=== PATIENT | male | born 1935 | race Caucasian/White ===

== ENCOUNTER → 2020-09-30 09:59 | Outpatient (BNVA) | payer MEDICARE, OTHER, SELFPAY | PROVIDERS: Visit Provider Otolaryngology | DX: C44.42 Squamous cell carcinoma of skin of scalp and neck (principal) | CPT/HCPCS: 87635 ==

== ENCOUNTER 2020-10-07 06:08 | Day surgery (SDC) | payer MEDICARE, OTHER, SELFPAY ==
[2020-10-06 10:51] VITALS: BMI 20.9
[2020-10-07] VITALS (7 sets, daily range): BP systolic 122–155; BP diastolic 57–99; PULSE 60–97; RESP 15–18; TEMP 36.6–37.1; O2SAT 94–100
--- NOTE | 2020-10-07 08:31 | ANES.PREANE2 ---
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 Proposed Procedure: Operation Date: 10/07/20 10:15 Proposed Procedures p EXCISION MALIGNANT LESION SCALP OVER 4CM ADJACENT TISSUE TRANSFER SCALP 10CM TO 30 CM 98390 66227 c44.42(Not Applicable) - Xavi Mejia MD Was Beta Dena taken within 24 hours: N/A Was Clonidine taken within 24 hours: N/A Last intake: Intake Last Liquid Date 10/06/20 Last Liquid Time 19:00 Last Solid Date 10/06/20 Last Solid Time 19:00 Social: Social History: No alcohol and No tobacco Exam: Pre-Anes Outpt Exam: alert, oriented x 3, clear to auscultation bilaterally and regular rate & rhythm Airway: Submandibular: WNL Cervical ROM: WNL MP: 2 Dentition: Chipped Additional comments: Poor dentition, hoarseness Metabolic: Metabolic: DM and Thyroid Comments: Chronic steroid Anesthetic Plan: ASA status: 3 Anesthesia: General Risk of > 500 ml blood loss (7ml/kg in children): No PFSH Anesthesia PFSH: Medical History Diabetes Hypothyroid Rheumatoid arteritis Surgical History History of thyroid surgery Social History Smoking and tobacco status: former smoker History of recent travel: No Data Anesthesia Cardiac Studies: No Data to Display
[2020-10-07 08:37] LABS: Glucose Point of Care 103 mg/dL (70-110)
[2020-10-07] MEDS: sodium chloride 0.9% 1,000 ML 30 ML IV (08:42)
--- NOTE | 2020-10-07 09:01 | W.PM.OPSUD ---
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
[2020-10-07] MEDS: neomycin-poly-bacitracin oint 28 gm 1 APPLIC TOPICAL (14:36)
--- NOTE | 2020-10-07 14:43 | P.OP_ITS ---
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 Procedure Done: Excision of invasive squamous cell carcinoma top of scalp with margins and reconstruction with combinations of rhomboid flap advancement rotation flap advancement flap and allograft. Implants: Allograft Specimens removed/disposition: Primary specimen sent to pathology for frozen section and margins Pathology: Frozen section consistent with invasive squamous cell carcinoma with margins clear Surgeon: Xavi Mejia Anesthesia: General Estimated blood loss (mL): 200 Complications: No complications encountered Findings: 3.5 x 2 cm ovoid invasive squamous cell carcinoma top of scalp Condition: stable Disposition: PACU Brief History: 85-year-old male patient had an invasive squamous cell carcinoma biopsied by Dr. Grant from dermatology. The patient was sent to de for definitive excision and reconstruction. The procedure its risks and complications were explained in detail. Informed consent was granted and wi tnessed. The risks included bleeding infection numbness scarring swelling bruising recurrence need for additional treatment cosmetic change and more serious risks associated with anesthesia. Procedure: The patient was placed in the operating table in the supine position. Adequate general LMA anesthesia was obtained. He was given Ancef IV for proph ylaxis. The patient was prepped and draped in usual fashion after rotating the table 90 degrees. Top of the scalp was exposed. Timeout was accomplished identifying the patient date of plan procedure allergies fire risk and medications given. A marking pen was used to outline a circular incision around the obvious lesion giving a 1 cm cuff around the edges. A 15 blade was used to create the incision circumferentially and taken down to the galea level. In this level the specimen was resected and then it was marked anteriorly with suture. While this was forwarded to the pathologist for margins hemostasis was attained with bipolar and needle tip Bovie and pressure. Pathology returned as invasive squamous cell carcinoma confirmed with all margins clear. At this point it was turning my attention to closure. Based on the scalp tautness or laxity in certain areas I planned out a rhomboid flap that was rotated from the superior parietal on the right side. This flap was raised and all the scalp was elevated to approximately the ears and then posterior to the occiput and the flap was placed into proper position filling the distal original defect and suturing with luís. At this point it became evident however that the donor site from where the rotation occurred did not have enough laxity to close it directly. Therefore the next flap that was raised was a advancement rotation from the left temporoparietal area. This helped to close part of the defect then a advancement with wedge resections was accomplished and this helped to close more of the defect. Skin that was taken from dogears from previous portions of the surgery were placed as grafts and then an allograft was selected to close the remaining 1.5 x 2 cm defect. This closed completely. Skin closure was done with luís and one in 2-0 Prolene and subcutaneous sutures were placed with 2-0 Vicryl. The drapes were then removed the area was cleansed with peroxide and then dried and Neosporin ointment was applied followed by Telfa and then fluffs and then Kerlix rolls around his head and around his chin and around the occiput to keep pressure and cover the Surgical sites to keep them clean and absorb any drainage. The patient tolerated the procedure well had an estimated blood loss of 200 mL and arrived in recovery in stable condition.
--- NOTE | 2020-10-07 14:52 | P.PCN_ITS ---
Documented by User: Terry Olivas CRNA 10/07/20 14:52 PACU note PACU note: VSS, Good respiratory effort, report to JAVA SUPPORT ENGINEER Post-Anesthesia Exam: awake
--- NOTE | 2020-10-07 14:52 | PM.PACU ---
Documented by User: Terry Olivas CRNA 10/07/20 14:52 PACU note PACU note: VSS, Good respiratory effort, report to CURER FOAM RUBBER Post-Anesthesia Exam: awake
--- NOTE | 2020-10-07 15:33 | SUR.PHASEII ---
patient rates pain at 6/10 on head but states he does not want pain medication for it right now. he has a paper rx to take with him for home medication
== END 2020-10-07 16:07 | disposition home or self-care (01) ==
PROVIDERS: Visit Provider Otolaryngology
PROC: (CPT 11626; principal; 2020-10-07 10:05)
DX: C44.42 Squamous cell carcinoma of skin of scalp and neck (principal); E11.9 Type 2 diabetes mellitus without complications; E03.9 Hypothyroidism, unspecified; Z87.891 Personal history of nicotine dependence; Z79.84 Long term (current) use of oral hypoglycemic drugs; Z79.52 Long term (current) use of systemic steroids
CPT/HCPCS: 11626; 12032; 36416; 82962; 88304; 88331; C1762; J0690; J2704; J3010; J7030

== ENCOUNTER → 2022-06-15 09:29 | Outpatient (BNVA) | payer MEDICARE, OTHER, SELFPAY | PROVIDERS: Visit Provider Otolaryngology | DX: C44.42 Squamous cell carcinoma of skin of scalp and neck (principal); Z85.828 Personal history of other malignant neoplasm of skin | CPT/HCPCS: 99214 ==

== ENCOUNTER 2022-07-14 11:51 | Day surgery (SDC) | payer MEDICARE, OTHER, SELFPAY ==
[2022-07-13 12:29] VITALS: BMI 19.5
[2022-07-14] VITALS (10 sets, daily range): BP systolic 130–159; BP diastolic 60–76; PULSE 80–93; RESP 16–18; TEMP 36.1–37; O2SAT 96–99
[2022-07-14 12:34] LABS: Glucose Point of Care 98 mg/dL (70-110)
--- NOTE | 2022-07-14 12:51 | ECG_ITS ---
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 Measurements Intervals [place] Rate: 68 P: 157 ME: 205 QRS: 144 QRSD: 83 T: 150 QT: 362 QTc: 387 Interpretive Statements ECTOPIC ATRIAL RHYTHM POSSIBLE RIGHT VENTRICULAR CONDUCTION DELAY [RSR (QR) IN V1/V2] LATERAL MYOCARDIAL INFARCTION , PROBABLY RECENT [40+ ms Q WAVE AND/OR ST/T ABNORMALITY IN I/aVL/V5/V6] ACUTE PA Compared to ECG 07/14/2022 12:51:22 Ectopic atrial rhythm now present Myocardial infarct finding now present Sinus rhythm no longer present There is theoretical school of the blame and the Electronically Signed On 07-14-2022 21:32:29 CDT by Wayne Saucedo M.D. [id number] f
--- NOTE | 2022-07-14 12:55 | ANES.PREANE2 ---
Pre-Anesthetic Assessment Height/Weight: Height 1.8 m Weight 63.503 kg Temp Pulse Resp BP Pulse Ox O2 Del Method 98.6 F 86 18 133/76 98 Room Air 07/14/22 12:18 07/14/22 12:18 07/14/22 12:18 07/14/22 12:18 07/14/22 12:18 07/14/22 12:24 Preop Diagnosis: Top of scalp lesion/squamous cell carcinoma Operation Date: 07/14/22 13:20 Proposed Procedures p 10391- excision of scalp lesion with repair, with frozen section C44.42(Not Applicable) - Xavi Mejia MD Familial anesthetic complications: NOne Was Beta Dena taken within 24 hours: N/A Was Clonidine taken within 24 hours: N/A Last intake: Intake Last Liquid Date 07/13/22 Last Liquid Time 23:00 Last Solid Date 07/13/22 Last Solid Time 23:00 Social No alcohol and No tobacco Exam alert, oriented x 3, clear to auscultation bilaterally and regular rate & rhythm Airway Mallampati: Class II Dentition: chipped Metabolic Diabetes Mellitus and Thyroid Disease [facility] Rheumatoid Arthritis (chronic steroid) Anesthetic Plan ASA status: 3 Anesthesia: General Risk of > 500 ml blood loss (7ml/kg in children): No Medications/Allergies Home Medications Medication Instructions Recorded Confirmed Last Taken Type folic acid 400 mcg tablet 0.4 mg PO DAILY 09/02/20 07/13/22 07/14/22 History levothyroxine 88 mcg capsule 88 mcg PO DAILY 09/02/20 07/14/22 07/13/22 History metformin 500 mg tablet 500 mg PO DAILY 09/02/20 07/13/22 07/13/22 History methotrexate sodium 5 mg tablet 5 mg PO DAILY 09/02/20 07/13/22 07/11/22 History prednisone 10 mg tablet 10 mg PO .3 weekly 09/02/20 07/13/22 07/11/22 History prednisone 5 mg tablet 5 mg PO DAILY 09/02/20 07/13/22 07/11/22 History Allergies Allergy/AdvReac Type Severity Reaction Status Date / Time No Known Allergies Allergy Verified 06/15/22 09:41 [facility] Anesthesia Medical History Diabetes History of nonmelanoma skin cancer Hypothyroid Rheumatoid arteritis Surgical History History of thyroid surgery Social History Smoking and tobacco status: never smoked Data Anesthesia Cardiac Studies: No Data to Display
--- NOTE | 2022-07-14 14:08 | W.PM.OPSUD ---
Surgery/Procedure H&P Update DATE OF PROCEDURE: July 14, 2022 DATE H&P PERFORMED: 06/15/22 H&P UPDATE INFORMATION: I have reviewed H&P completed within last 30 days, I have examined patient prior to procedure and No changes to prior documentation CHANGES TO PREVIOUS DOCUMENTATION: No changes PREOP DIAGNOSIS: Top of scalp lesion/squamous cell carcinoma PRIMARY INDICATION FOR PROCEDURE: Squamous cell carcinoma of scalp PLANNED PROCEDURE: Operation Date: 07/14/22 13:20 Proposed Procedures p 49300- excision of scalp lesion with repair, with frozen section C44.42(Not Applicable) - Xavi Mejia MD
[2022-07-14] MEDS: ceFAZolin 2,000 MG in sodium chloride 0.9% (plus) 50 ML 100 MG IV (14:12)
[2022-07-14] MEDS: neomycin-poly-bacitracin oint 28 gm 1 APPLIC TOPICAL (15:09)
--- NOTE | 2022-07-14 15:13 | SUR.OPER ---
6.8ML 2% LIDOCAINE WITH EPI INJECTED INTO THE HEAD.
--- NOTE | 2022-07-14 15:25 | PM.OP ---
Operative Report Date of procedure: July 14, 2022 Pre-op diagnosis: Preop Diagnosis Top of scalp lesion/squamous cell carcinoma Post-op diagnosis: Scalp lesion with clear margins Post-op findings: Clear margins Procedure done: scalp lesion with primary repair multilayer 6 cm in length. Implants: No implants Specimens removed/disposition: Scalp lesion with right lateral margin marked with suture Pathology: Same Surgeon: Xavi Mejia MD Anesthesia: General and Local Estimated blood loss: 10 mL Complications: No complications encountered Findings: This patient has had squamous cell carcinoma excised from his scalp in the past. In one of the vision lines there appears to be a recurrence. He has changes that look like actinic keratosis hyperkeratosis and solar elastosis as well. Being brought to the operating room to undergo excision of this lesion and obtain margins. Brief History: 87-year-old male patient with prior squamous cell carcinoma excised in the past. Over time he has developed new lesions at one of the incision lines. He is brought to the operating room at this time to go through excision of this lesion and obtain clear margins. The procedure its risks and complications of been explained in detail. Informed consent is granted and witnessed. Patient understands the risks to include bleeding infection numbness scarring swelling bruising recurrence need for additional treatment and anesthetic risks. Procedure: Description of procedure: The patient was placed on the operating table in the supine position. Adequate general LMA anesthesia was obtained initially and later due to some leakage changed over to a general endotracheal tube. The patient's top of his scalp was exposed in a semirecumbent position. His eyes were taped shut. The scalp was cleansed with alcohol at the sign the site area. 6.8 mL of 2% Xylocaine with 1 100,000 epinephrine was utilized to infiltrate in a regional block. Patient was then prepped and draped in usual fashion. A timeout was accomplished identifying the patient date of plan procedure allergies fire risk and medications given. With all in agreement the procedure continued. A marking pen was used to outline a fusiform excision pattern running from medial to lateral. The wide segment was in the center and anterior and posterior margins were the ones of concern. The incision was created with a cut mode of the Bovie on low power carrying it down to the galea layer. In that layer the lesion was excised and it was marked right lateral with suture. This was sent for frozen section. While that was pending the area had bleeding controlled with bipolar cautery. With the expectation that the margins would be clear the undermining was accomplished for about 10 cm anterior to the incision and also posterior to the incision. Then the deep layer was closed with interrupted 3-0 Vicryl suture. This came together well. Then skin luís were placed from lateral to medial on the incision or defect itself. This closed completely. The area was cleansed and pressure was applied until frozen section returned and this showed clear margins. The area was cleansed once again Neosporin ointment applied and sterile OpSite dressing placed. Patient tolerated the procedure well had an estimated blood loss of 10 mL and arrived in recovery in stable condition.
--- NOTE | 2022-07-14 17:06 | ANE.PACU2 ---
Inpatient post-anesthesia follow up: Airway intact: Yes Vital signs: Temperature 97.2 F Pulse Rate 90 Respiratory Rate 17 Blood Pressure 142/72 Pulse Oximetry 99 Oxygen Delivery Me thod Room Air Oxygen Flow Rate 6 Fraction of Inspir ed Oxygen Hydration adequate: Yes Nausea and vomiting: No Pain level: 1 Mental status: Baseline
== END 2022-07-14 16:35 | disposition home or self-care (01) ==
PROVIDERS: Visit Provider Otolaryngology
PROC: (CPT 11620; principal; 2022-07-14 13:10)
DX: C44.42 Squamous cell carcinoma of skin of scalp and neck (principal); L57.0 Actinic keratosis; E11.9 Type 2 diabetes mellitus without complications; E03.9 Hypothyroidism, unspecified; Z79.84 Long term (current) use of oral hypoglycemic drugs
CPT/HCPCS: 11620; 36416; 82962; 88304; 88331; 88342; 93005; J0690; J1100; J2405; J2704; J3010

== ENCOUNTER → 2022-07-22 11:01 | Outpatient (BNVA) | payer MEDICARE, OTHER, SELFPAY | PROVIDERS: Visit Provider Otolaryngology | DX: Z48.817 Encounter for surgical aftercare following surgery on the skin and subcutaneous tissue (principal) | CPT/HCPCS: 99024 ==

== ENCOUNTER → 2022-07-26 08:08 | Outpatient (BNVA) | payer MEDICARE, OTHER, SELFPAY | PROVIDERS: Visit Provider Otolaryngology | DX: Z48.817 Encounter for surgical aftercare following surgery on the skin and subcutaneous tissue (principal); C44.42 Squamous cell carcinoma of skin of scalp and neck | CPT/HCPCS: 99024; 99212 ==

== ENCOUNTER → 2022-12-28 09:51 | Outpatient (BNVA) | payer MEDICARE, OTHER, SELFPAY | PROVIDERS: Visit Provider Otolaryngology | DX: C44.42 Squamous cell carcinoma of skin of scalp and neck (principal); Z85.828 Personal history of other malignant neoplasm of skin | CPT/HCPCS: 99214 ==

== ENCOUNTER 2023-01-10 09:30 | Day surgery (SDC) | payer MEDICARE, OTHER, SELFPAY ==
[2023-01-10] VITALS (11 sets, daily range): BP systolic 116–139; BP diastolic 47–84; PULSE 72–100; RESP 12–20; TEMP 36.2–36.8; O2SAT 95–100; BMI 17.4
[2023-01-10] MEDS: sodium chloride 0.9% 1,000 ML 30 ML IV (10:19)
[2023-01-10 10:25] LABS: Glucose Point of Care 89 mg/dL (70-110)
--- NOTE | 2023-01-10 10:48 | ECG_ITS ---
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 Measurements Intervals [place] Rate: 67 P: 0 MT: 0 QRS: 52 QRSD: 87 T: 63 QT: 391 QTc: 413 Interpretive Statements SINUS RHYTHM WITH PAC'S POSSIBLE RIGHT VENTRICULAR CONDUCTION DELAY [RSR (QR) IN V1/V2] ABNORMAL RHYTHM ECG Compared to ECG 07/14/2022 12:56:41 Ectopic atrial rhythm no longer present Myocardial infarct finding no longer present Electronically Signed On 01-10-2023 12:20:01 CDT by Nell Camargo M.D. [email or web address] [email or web address] community [email or web address] [id number]
--- NOTE | 2023-01-10 11:19 | P.ANESASSM_ITS ---
Pre-Anesthetic Assessment Height/Weight: Height 1.8 m Weight 56.699 kg Temp Pulse Resp BP Pulse Ox O2 Del Method 97.7 F 72 18 116/63 95 Room Air 01/10/23 10:03 01/10/23 10:24 01/10/23 10:03 01/10/23 10:03 01/10/23 10:24 01/10/23 10:24 Preop Diagnosis: Malignant lesions of left scalp and left lower eyelid Operation Date: 01/10/23 12:00 Proposed Procedures p 13209-ixoowpmj of skin lesion of left lower eyelid,w/closure,w/frozen section 72980-xejxfahr of left temporal lesion w/repair,w/frozen section C44.42 ,Z85.828(Left) - Xavi Mejia MD Familial anesthetic complications: None Was Beta Dena taken within 24 hours: N/A Was Clonidine taken within 24 hours: N/A Last intake: Intake Last Liquid Date 01/09/23 Last Liquid Time 21:00 Last Solid Date 01/09/23 Last Solid Time 21:00 Social No alcohol and No tobacco Exam alert, oriented x 3, clear to auscultation bilaterally and regular rate & rhythm Airway Mallampati: Class II Dentition: chipped Metabolic Diabetes Mellitus and Thyroid Disease Musc/skel Rheumatoid Arthritis (Prednisone) Anesthetic Plan ASA status: 3 Anesthesia: General Risk of > 500 ml blood loss (7ml/kg in children): No Medications/Allergies Home Medications Medication Instructions Recorded Confirmed Last Taken Type folic acid 400 mcg tablet 0.4 mg PO DAILY 09/02/20 01/10/23 01/09/23 History levothyroxine 88 mcg capsule 88 mcg PO DAILY 09/02/20 01/09/23 01/09/23 History metformin 500 mg tablet 500 mg PO DAILY 09/02/20 01/09/23 01/09/23 History methotrexate sodium 5 mg tablet 5 mg PO DAILY 09/02/20 01/10/23 01/09/23 History prednisone 10 mg tablet 10 mg PO .3 weekly 09/02/20 01/10/23 01/09/23 History prednisone 5 mg tablet 5 mg PO DAILY 09/02/20 01/10/23 01/09/23 History Allergies Allergy/AdvReac Type Severity Reaction Status Date / Time No Known Allergies Allergy Verified 01/10/23 10:00 Current Medications Generic Name Dose Route Start Last Admin Trade Name Freq PRN Reason Stop Dose Admin Sodium Chloride 1,000 mls @ 30 mls/hr 01/10/23 10:00 01/10/23 10:19 Sodium Chloride 0.9% IV 01/11/23 09:59 30 mls/hr .Q24H DANIELA Administration PFSH Anesthesia Medical History Diabetes History of nonmelanoma skin cancer Hypothyroid Rheumatoid arteritis Surgical History History of thyroid surgery Social History Smoking and tobacco/nicotine status: never used tobacco/nicotine Data Anesthesia Cardiac Studies: No Data to Display
--- NOTE | 2023-01-10 11:44 | W.PM.OPSUD ---
Surgery/Procedure H&P Update DATE OF PROCEDURE: January 10, 2023 DATE H&P PERFORMED: 12/28/22 H&P UPDATE INFORMATION: I have reviewed H&P completed within last 30 days, I have examined patient prior to procedure and No changes to prior documentation CHANGES TO PREVIOUS DOCUMENTATION: No changes PREOP DIAGNOSIS: Malignant lesions of left scalp and left lower eyelid PRIMARY INDICATION FOR PROCEDURE: Malignant appearing lesions of the left scalp and left lower eyelid PLANNED PROCEDURE: Operation Date: 01/10/23 12:00 Proposed Procedures p 86294-nylxiude of skin lesion of left lower eyelid,w/closure,w/frozen section 04046-purukxca of left temporal lesion w/repair,w/frozen section C44.42,Z85.828(Left) - Xavi Mejia MD
[2023-01-10] MEDS: ceFAZolin 2,000 MG in sodium chloride 0.9% (plus) 50 ML 100 MG IV (12:15)
[2023-01-10] MEDS: lidocaine-epi 2% 1.7mL Cartridge (OR Only) 13.6 ML XX (12:16)
[2023-01-10] MEDS: neomycin-poly-bacitracin oint 28 gm 5 APPLIC TOPICAL (14:06)
--- NOTE | 2023-01-10 14:15 | PM.OP ---
Operative Report Date of procedure: January 10, 2023 Pre-op diagnosis: Left inferior orbital skin lesion consistent with malignancy. Left scalp skin lesion consistent with malignancy. 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 Subsequent deeper and marginal margin clear. 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 Subsequent margins clear. Post-op findings: Margins clear deep and circumferentially for left orbital lid and left pentecostalism skin. Procedure done: Excision of left orbital rim skin lesion with margins. Full excision area measured 2.5 x 2 cm. Secondary margins were necessary and finally clear. Closed with full-thickness skin graft harvested from left neck. Excision of left pentecostalism lesion nearly 6 cm at largest diameter with margins deep and circumferentially. Implants: No implants Specimens removed/disposition: Skin lesion from inferior orbital lid with margin and excision of left temporal skin lesion with margin. Pathology: Pathology from left lower lid proved to be squamous cell carcinoma with deep margin and peripheral margin positive initially and later clear. Pathology from left pentecostalism skin lesion initially positive for nodular basal cell carcinoma both deep and marginal and eventually specimen gave clear margins. Surgeon: Xavi Mejia MD Anesthesia: General and Local Estimated blood loss: 25 mL Complications: No complications encountered Findings: Patient has rapidly growing left inferior eyelid lesion. Sore growing ulcerative lesion of left pentecostalism. Highly suspicious for squamous cell carcinoma of lower lid and basal cell carcinoma of left pentecostalism. Brief History: 87-year-old male patient has had multiple skin lesions removed in the past for malignancy. He now has an aggressively growing left lower eyelid and a slower but enlarging and nodular left pentecostalism skin lesion. These are both highly suspicious for malignancy. Both of these are to be removed in the operating room under general anesthesia with local and then repair with possible full-thickness skin graft. The procedures risks and complications have been explained in detail. The risks include bleeding and infection and numbness and scarring and swelling and bruising and ectropion with the lower lid being pulled down and potential need for full-thickness skin graft we harvested from the left neck and more serious risks associated with anesthesia. With these things understood informed consent was granted and witnessed. Procedure: Description of procedure: The patient was placed on the operating table in the supine position. Adequate general anesthesia was obtained and with visualization with the glide scope the patient had asked that I look at his vocal cords because he felt like his voice was changing. His cords were normal medially. On the left cord and the area between the true cord and the false cord there is a little bit of a pink lesion but it does not appear to be suspicious. Possibly a small polyp. Did not look like a malignancy. The patient was then intubated and then the table was rotated 90 degrees. He was prepped and draped in usual fashion. Sign the site were noted. A timeout was accomplished identifying the patient date of plan procedure allergies fire risk and medications given. With all in agreement the procedure continued. Marked sites were cleansed with alcohol and the lower lid and the left pentecostalism area were infiltrated in a block fashion around the lesions. The left neck potential harvest site for a full-thickness skin graft was also infiltrated. A total of 13.6 mL of 2% Xylocaine with 1-100,000 epinephrine was utilized. The patient was then prepped and draped in usual fashion. A marking pen was used to outline the excision patterns first under the left eye and secondarily the left pentecostalism. I started using a separate set of instruments to cut the left lower lid lesion inferior to the eyelashes. Then I extended around the circumference of the lesion which was approximately 3 to 4 mm of height off the skin. I took this down to the fascia and muscle and marked it laterally with a suture. That was sent to pathology for frozen section and margins. Hemostasis was attained with bipolar cautery. Attention was then turned to excision of the left pentecostalism lesion. This was excised in a fusiform pattern with the apices anterior and posterior. The the anterior margin was marked with suture. Hemostasis was attained with bipolar cautery. Pressure was applied to the excision sites and the initial biopsy of the left lower lid came back as poorly differentiated squamous cell carcinoma with margins deep and marginally so a separate second margin was harvested all around and deep. This was forwarded to the pathologist as a second margin. Then bipolar cautery was used to obtain complete hemostasis. Knowing that a skin graft was definitely going to be need to be used to close this a full-thickness skin graft was harvested from the left neck. Then closed with luís. 6 cm of graft by 3 cm was harvested. Then the report on the second specimen from the left pentecostalism showed nodular basal cell carcinoma with deep and peripheral margin positive at 3:00. Then a new margin was taken both deep and at the 3:00 side. This was forwarded to the pathologist. Again bipolar cautery was used to obtain complete hemostasis. The second margin from the lower lid came back clear. Therefore skin graft was cut to size and sutured in a circumferential pattern to close that defect. The second margin on the left pentecostalism area came back as clear as well. Using a combination of direct closure with undermining and then some additional portion of the skin graft was used to close the left pentecostalism skin defect. Once that was accomplished the areas were cleansed Neosporin ointment was applied over the defects a eye guard was placed over his left eye as not to put any pressure on his globe itself. Then OpSite was placed with Neosporin ointment over the scalp and the left neck defects. With that accomplished the drapes were removed and the patient was returned to anesthesia for wake-up and extubation. The patient tolerated the procedure well had an estimated blood loss of 25 mL and arrived in recovery in stable condition. Data this dictation is 01/10/2023.
--- NOTE | 2023-01-10 16:10 | ANE.PACU2 ---
Inpatient post-anesthesia follow up: Airway intact: Yes Vital signs: Temperature 97.2 F Pulse Rate 86 Respiratory Rate 18 Blood Pressure 136/57 Pulse Oximetry 99 Oxygen Delivery Me thod Room Air Oxygen Flow Rate Fraction of Inspir ed Oxygen Hydration adequate: Yes Nausea and vomiting: No Pain level: 1 Mental status: Baseline Additional Comments: BP stable, but patient appears to go in and out of a fib/PACs. informed him he should follow up with cardiology or PCP regarding possible a fib
== END 2023-01-10 16:11 | disposition home or self-care (01) ==
PROVIDERS: Visit Provider Otolaryngology
PROC: (CPT 11646; principal; 2023-01-10 12:00)
DX: C44.1292 Squamous cell carcinoma of skin of left lower eyelid, including canthus (principal); C44.319 Basal cell carcinoma of skin of other parts of face; E11.9 Type 2 diabetes mellitus without complications; M06.9 Rheumatoid arthritis, unspecified; Z79.52 Long term (current) use of systemic steroids; Z79.84 Long term (current) use of oral hypoglycemic drugs; E03.9 Hypothyroidism, unspecified
CPT/HCPCS: 11646; 15260; 67961; 36416; 82962; 88304; 88331; 93005; A4216; J0690; J1100; J2405; J2704; J2710; J3010; J3490; J7030

== ENCOUNTER → 2023-01-17 08:09 | Outpatient (BNVA) | payer MEDICARE, OTHER, SELFPAY | PROVIDERS: Visit Provider Otolaryngology | DX: Z48.89 Encounter for other specified surgical aftercare (principal); C44.42 Squamous cell carcinoma of skin of scalp and neck; Z85.828 Personal history of other malignant neoplasm of skin | CPT/HCPCS: 99024 ==

== ENCOUNTER → 2023-01-23 12:57 | Outpatient (BNVA) | payer MEDICARE, OTHER, SELFPAY | PROVIDERS: Visit Provider Surgery | DX: Z85.828 Personal history of other malignant neoplasm of skin (principal) | CPT/HCPCS: 99203 ==